=== PATIENT | male | born 1975 | race Caucasian/White ===

== ENCOUNTER 2022-03-23 20:35 | Emergency (ER) | payer SELFPAY ==
[~2022-03-23] VITALS: Ht 172.7 cm; Wt 75.0 kg
[2022-03-23] MEDS ORDERED: ACETAMINOPHEN 325MG TABLET PO STA (23:14)
[2022-03-23] MEDS ORDERED: IBUPROFEN 600MG TABLET PO STA (23:14)
[2022-03-24] MEDS ORDERED: IBUP-2028 MT (00:57)
[2022-03-24 01:10] VITALS: BP 107/64
== END 2022-03-24 01:11 | disposition home or self-care (01) ==
LOC: ER 20:35
DX: M54.89 Other dorsalgia (principal); M54.2 Cervicalgia; M25.511 Pain in right shoulder; R11.2 Nausea with vomiting, unspecified; R03.0 Elevated blood-pressure reading, without diagnosis of hypertension; E03.9 Hypothyroidism, unspecified; S16.1XXA Strain of muscle, fascia and tendon at neck level, initial encounter; V49.59XA Passenger injured in collision with other motor vehicles in traffic accident, initial encounter; Y93.89 Activity, other specified; Y92.411 Interstate highway as the place of occurrence of the external cause
CPT/HCPCS: 71045; 73030; 99284